=== PATIENT | female | born 1980 | race Caucasian/White ===

== ENCOUNTER 2021-08-26 18:32 | Emergency (ER) | payer BC ==
[~2021-08-26] VITALS: Ht 170.2 cm; Wt 86.2 kg
--- NOTE | 2021-08-26 19:30 | NUR ---
DR. FORTUNE AT BEDSIDE, MSE IN PROGRESS.
[2021-08-26 20:14] LABS: HEMATOCRIT 36.2 % (31.2-41.9); MEAN CORPUSCULAR HEMOGLOBIN 28.8 uug (24.7-32.8); MEAN CORPUSCULAR VOLUME 85.6 fL (75.5-95.3); PLATELET COUNT (AUTO) 331 K/uL (179-408)
[2021-08-26 20:16] LABS: CREATININE 0.9 mg/dL (0.6-1.3); POTASSIUM 3.9 mmol/L (3.5-5.1)
[2021-08-26 20:21] LABS: BILIRUBIN,DIRECT 0.1 mg/dL (0.0-0.2); BILIRUBIN,TOTAL 0.2 mg/dL (0.2-1.0); TOTAL PROTEIN, SERUM 7.1 g/dL (6.4-8.2)
[2021-08-26 20:24] LABS: *BILIRUBIN,URIN NEGATIVE (NEGATIVE); *BLOOD, URINE NEGATIVE (NEGATIVE); *CLARITY,URINE CLEAR (CLEAR); *COLOR,URINE YELLOW (YELLOW); *KETONES,URINE NEGATIVE (NEGATIVE); *UROBILINOGEN,URINE 0.2 E.U./dl (NORMAL); LEUKOCYTE ESTERASE ,URINE NEGATIVE (NEGATIVE); NITRITE, URINE NEGATIVE (NEGATIVE); UGLUCOSE NEGATIVE (NEGATIVE)
[2021-08-26 20:32] LABS: *URINE HCG, QUAL NEGATIVE (NEGATIVE)
--- NOTE | 2021-08-26 21:14 | NUR ---
PT RESTING COMFORTABLY IN BED.
--- NOTE | 2021-08-26 22:45 | NUR ---
JAY FORTUNE FOR OCCULT BLOOD TEST.
[2021-08-26 22:57] LABS: *OCCULT BLOOD STOOL NEGATIVE (NEGATIVE)
--- NOTE | 2021-08-26 23:35 | NUR ---
Patient discharged to home in stable condition. Written and verbal after care instructions given. Patient verbalizes understanding of instructions. Stressed follow up or return to ER for worsening s/s. Steady gait. Picked up by Sena .
[2021-08-26 23:41] VITALS: BP 134/72
== END 2021-08-26 23:41 | disposition home or self-care (01) ==
LOC: ER 18:35
DX: R10.84 Generalized abdominal pain (principal); E03.9 Hypothyroidism, unspecified; F17.210 Nicotine dependence, cigarettes, uncomplicated; Z20.822 Contact with and (suspected) exposure to COVID-19
CPT/HCPCS: 36415; 83690; 84703; 85025; A4663